=== PATIENT | male | born 1970 | race Caucasian/White ===

== ENCOUNTER 2018-03-01 12:56 | Emergency (ER) | payer OTHER ==
[~2018-03-01] VITALS: Ht 175.3 cm; Wt 77.3 kg
[2018-03-01 13:13] VITALS: Ht 175.3 cm; Wt 77.3 kg
[2018-03-01] MEDS ORDERED: MOTRIN600 MG PO (13:15)
[2018-03-01] MEDS ORDERED: TRAZODONE HCL150 MG PO (13:15)
[2018-03-01] MEDS ORDERED: CELEXA20 MG PO (13:15)
[2018-03-01] MEDS ORDERED: ROBAXIN500 MG PO (15:05)
[2018-03-01] MEDS ORDERED: VOLTAREN75 MG PO (15:05)
[2018-03-01 15:34] VITALS: BP 118/85
== END 2018-03-01 15:35 | disposition home or self-care (01) ==
LOC: D.ER 12:56
DX: M25.522 Pain in left elbow (principal); S89.92XA Unspecified injury of left lower leg, initial encounter; V19.9XXA Pedal cyclist (driver) (passenger) injured in unspecified traffic accident, initial encounter; Y93.55 Activity, bike riding; Y92.89 Other specified places as the place of occurrence of the external cause; F17.200 Nicotine dependence, unspecified, uncomplicated